=== PATIENT | female | born 1950 | race Caucasian/White ===

== ENCOUNTER 2022-02-13 12:32 | Emergency (ER) | payer MEDICARE | END 2022-02-13 17:02 | disposition home or self-care (01) | LOC: ER1 12:32 | DX: S40.011A Contusion of right shoulder, initial encounter (principal); S01.90XA Unspecified open wound of unspecified part of head, initial encounter; R94.02 Abnormal brain scan; I10 Essential (primary) hypertension; Z88.1 Allergy status to other antibiotic agents; W01.10XA Fall on same level from slipping, tripping and stumbling with subsequent striking against unspecified object, initial encounter; Y92.009 Unspecified place in unspecified non-institutional (private) residence as the place of occurrence of the external cause | CPT/HCPCS: 70450; 72125; 73030; 99284 ==